=== PATIENT | male | born 2000 | race Caucasian/White ===

== ENCOUNTER 2020-04-17 12:52 | Emergency (ER) | payer OTHER ==
[2020-04-17 13:17] VITALS: BP 133/88; PULSE 68; TEMP 98; BMI 29.0
[2020-04-17] MEDS ORDERED: IBUPROFEN 600 MG TABLET (FP) PO ONE ×2 (13:28→13:30)
[2020-04-17] MEDS ORDERED: METHOCARBAMOL 500 MG TABLET PO ONE (13:28)
[2020-04-17] MEDS ORDERED: METHOCARBAMOL 500 MG TABLET ONE (13:30)
== END 2020-04-17 13:44 | disposition home or self-care (01) ==
LOC: JERFT 12:52
DX: M62.830 Muscle spasm of back (principal); V49.40XA Driver injured in collision with unspecified motor vehicles in traffic accident, initial encounter
CPT/HCPCS: 99283-25

== ENCOUNTER 2020-07-14 04:09 | Emergency (ER) | payer OTHER ==
[2020-07-14] MEDS ORDERED: ALBUTEROL SO4 2.5/IPRATROPIUM 0.5 INH SOL 3 ML VIAL.NEB. NEB ONE ×3 (04:22→05:02)
[2020-07-14 04:27] VITALS: BP 152/77; PULSE 117; TEMP 98.1; BMI 27.3
[2020-07-14] MEDS ORDERED: methylPREDNISolone NA SUCC 125 MG/2 ML VIAL IVPB ONE (04:28)
[2020-07-14] MEDS ORDERED: methylPREDNISolone NA SUCC 125 MG/2 ML VIAL ONE (04:34)
[2020-07-14] MEDS ORDERED: MAGNESIUM SULF 50% (8.12 MEQ/2 ML-1 GM VIAL) IVPB ONE (04:59)
[2020-07-14] MEDS ORDERED: MAGNESIUM SULFATE IN WATER 2 GM/50 ML IVPB IVPB ONE (05:03)
== END 2020-07-14 07:01 | disposition home or self-care (01) ==
LOC: JER 04:09
PROC: 3E0F7GC Introduction of Other Therapeutic Substance into Respiratory Tract, Via Natural or Artificial Opening (ICD-10-PCS; principal; 2020-07-14)
PROC: 3E033GC Introduction of Other Therapeutic Substance into Peripheral Vein, Percutaneous Approach (ICD-10-PCS; 2020-07-14)
PROC: 3E033GC Introduction of Other Therapeutic Substance into Peripheral Vein, Percutaneous Approach (ICD-10-PCS; 2020-07-14)
DX: J45.901 Unspecified asthma with (acute) exacerbation (principal)
CPT/HCPCS: 71045-TC-FY; 99284-25; C9803; U0003; U0005

== ENCOUNTER 2020-09-02 04:18 | Emergency (ER) | payer OTHER ==
[2020-09-02 04:28] VITALS: BP 117/77; PULSE 92; BMI 28.8
[2020-09-02] MEDS ORDERED: DEXAMETHASONE 4 MG TABLET (FP) PO ONE (04:34)
[2020-09-02] MEDS ORDERED: diphenhydrAMINE HCL 25 MG CAPSULE (FP) PO ONE (04:35)
[2020-09-02] MEDS ORDERED: DEXAMETHASONE SOD PHOSPHATE 10 MG/1 ML VIAL ONE (04:37)
[2020-09-02] MEDS ORDERED: FAMOTIDINE 10 MG TABLET PO ONE (04:55)
[2020-09-02] MEDS ORDERED: ONDANSETRON *ODT* 4 MG TABLET SL ONE (04:55)
[2020-09-02] MEDS ORDERED: FAMOTIDINE 20 MG/50 ML IVPB 20 MG/50 ML MG IVPB ONE (04:56)
[2020-09-02] MEDS ORDERED: ONDANSETRON 4 MG/2 ML VIAL ONE (04:56)
== END 2020-09-02 05:05 | disposition left against medical advice (07) ==
LOC: JER 04:18
DX: R21 Rash and other nonspecific skin eruption (principal)
CPT/HCPCS: 99283-25

== ENCOUNTER 2022-04-20 16:12 | Emergency (ER) | payer OTHER ==
[2022-04-20 16:17] VITALS: BP 139/83; PULSE 73; RESP 18; TEMP 98.2; BMI 32.6
[2022-04-20] MEDS ORDERED: IBUPROFEN 600 MG TABLET (FP) PO ONE ×2 (17:38→17:40)
== END 2022-04-20 18:28 | disposition home or self-care (01) ==
LOC: JERFT 16:12
DX: S93.492A Sprain of other ligament of left ankle, initial encounter (principal); M25.572 Pain in left ankle and joints of left foot; X50.0XXA Overexertion from strenuous movement or load, initial encounter; Y93.66 Activity, soccer
CPT/HCPCS: 73610-TC-LT-FY; 99283-25

== ENCOUNTER 2022-06-03 10:44 | Emergency (ER) | payer OTHER ==
[2022-06-03 10:50] VITALS: BP 130/89; PULSE 86; RESP 18; TEMP 98.8; BMI 31.9
[2022-06-03] MEDS ORDERED: ACETAMINOPHEN 500 MG TABLET (FP) PO ONE (12:36)
[2022-06-03] MEDS ORDERED: ACETAMINOPHEN 500 MG TABLET (FP) ONE (12:42)
== END 2022-06-03 13:59 | disposition home or self-care (01) ==
LOC: JERFT 10:44 → JER 10:44 → JERFT 13:59
PROC: 0HQ1XZZ Repair Face Skin, External Approach (ICD-10-PCS; principal; 2022-06-03)
DX: S01.112A Laceration without foreign body of left eyelid and periocular area, initial encounter (principal); S00.83XA Contusion of other part of head, initial encounter; W50.0XXA Accidental hit or strike by another person, initial encounter; Y93.66 Activity, soccer
CPT/HCPCS: 70486-TC; 99284-25

== ENCOUNTER 2022-06-08 16:58 | Emergency (ER) | payer OTHER ==
[2022-06-08 17:03] VITALS: BP 144/80; PULSE 68; RESP 18; TEMP 96; BMI 31.9
== END 2022-06-08 17:54 | disposition home or self-care (01) ==
LOC: JER 16:58
DX: H11.32 Conjunctival hemorrhage, left eye (principal); Z48.02 Encounter for removal of sutures
CPT/HCPCS: 99281-25